=== PATIENT | female | born 1985 | race Caucasian/White ===

== ENCOUNTER 2016-09-04 09:37 | Outpatient (CLI) | payer MEDICAID | END 2016-09-04 09:38 | disposition home or self-care (01) | DX: Z36 Encounter for antenatal screening of mother (principal) ==

== ENCOUNTER 2016-10-27 16:29 | Outpatient (CLI) | payer MEDICAID ==
[2016-10-27 17:07] LABS: BASOPHILS % (AUTO) 0.4 %; EOSINOPHILS # (AUTO) 0.2 10^3/uL (0.0-0.7); EOSINOPHILS % (AUTO) 1.2 %; HCT - HEMATOCRIT 37.5 % (37.0-47.0); HGB - HEMOGLOBIN 12.5 g/dL (12.0-16.0); LYMPHOCYTES # (AUTO) 2.6 10^3/uL (1.5-3.5); LYMPHOCYTES % (AUTO) 20.6 %; MEAN CORPUSCULAR HEMOGLOBIN 29.2 pg (27.0-31.0); MEAN CORPUSCULAR HGB CONC 33.4 g/dL (32.0-36.0); MEAN CORPUSCULAR VOLUME 87.5 fL (81.0-99.0); MEAN PLATELET VOLUME 8.3 fL (7.9-10.8); MONOCYTES # (AUTO) 0.9 10^3/uL (0.0-1.0); MONOCYTES % (AUTO) 7.3 %; NEUTROPHILS # (AUTO) 8.9 10^3/uL (1.5-6.6); NEUTROPHILS % (AUTO) 70.5 %; RED BLOOD COUNT 4.28 10^6/uL (4.20-5.40); RED CELL DISTRIBUTION WIDTH 14.2 % (12.0-15.0); UNCORRECTED WHITE BLOOD COUNT 12.6 x10^3/uL; WHITE BLOOD COUNT 12.6 x10^3/uL (4.8-10.8)
[2016-10-27 17:15] LABS: CREATININE 0.4 mg/dL (0.4-1.0)
[2016-10-27 17:18] LABS: URIC ACID 3.3 mg/dL (2.6-7.2)
[2016-10-27 17:39] VITALS: BP 123/69
== END 2016-10-27 17:25 | disposition home or self-care (01) ==
LOC: OB 16:29 → WFO 16:29
PROVIDERS: ATTEND Obstetrics & Gynecology
DX: O10.913 Unspecified pre-existing hypertension complicating pregnancy, third trimester (principal); Z3A.34 34 weeks gestation of pregnancy
CPT/HCPCS: 36415; 59025; 82565; 82570; 83615; 84156; 84450; 84550; 85025

== ENCOUNTER 2016-11-02 08:00 | Outpatient (CLI) | payer MEDICAID | END 2016-11-02 08:01 | disposition home or self-care (01) | DX: Z36 Encounter for antenatal screening of mother (principal) ==

== ENCOUNTER 2016-11-02 10:19 | Outpatient (CLI) | payer MEDICAID | END 2016-11-02 11:25 | disposition home or self-care (01) | DX: Z36 Encounter for antenatal screening of mother (principal); O10.913 Unspecified pre-existing hypertension complicating pregnancy, third trimester; Z3A.35 35 weeks gestation of pregnancy ==

== ENCOUNTER 2016-11-09 09:12 | Outpatient (CLI) | payer MEDICAID | END 2016-11-09 10:50 | disposition home or self-care (01) | DX: O16.3 Unspecified maternal hypertension, third trimester (principal); Z3A.36 36 weeks gestation of pregnancy ==

== ENCOUNTER 2016-11-16 08:59 | Outpatient (CLI) | payer MEDICAID | END 2016-11-16 10:00 | disposition home or self-care (01) | DX: O13.3 Gestational [pregnancy-induced] hypertension without significant proteinuria, third trimester (principal); Z3A.37 37 weeks gestation of pregnancy ==

== ENCOUNTER 2016-11-23 08:54 | Outpatient (CLI) | payer MEDICAID | END 2016-11-23 09:42 | disposition home or self-care (01) | DX: O13.3 Gestational [pregnancy-induced] hypertension without significant proteinuria, third trimester (principal); Z3A.35 35 weeks gestation of pregnancy ==

== ENCOUNTER 2016-11-30 10:11 | Inpatient (IN) | payer MEDICAID ==
[2016-11-30] MEDS ORDERED: SODIUM CHLORIDE FLUSH 0.9% 10 ML SYRINGE IVP ONE ×2 (11:33→21:06)
[2016-11-30] MEDS ORDERED: LACTATED RINGERS 1,000 ML IV ONE ×4 (11:33→13:28)
[2016-11-30] MEDS ORDERED: ceFAZolin 2 GM/50 ML 50 ML IV SCH (11:45)
[2016-11-30] MEDS ORDERED: CITRIC ACID/SODIUM CITRATE 15 ML UDC PO SCH (12:00)
[2016-11-30] MEDS ORDERED: CITRIC ACID/SODIUM CITRATE 15 ML UDC PO ONE (12:11)
[2016-11-30] MEDS ORDERED: DEXAMETHASONE 4 MG/ML VIAL IVP ONE (13:00)
[2016-11-30] MEDS ORDERED: OXYTOCIN 10 UNIT/ML VIAL IV ONE (13:00)
[2016-11-30] MEDS ORDERED: ONDANSETRON 4 MG/2 ML VIAL IVP ONE (13:00)
[2016-11-30] MEDS ORDERED: MORPHINE PF 5 MG/10 ML VIAL IVP ONE (13:00)
[2016-11-30] MEDS ORDERED: KETOROLAC 30 MG/ML VIAL IVP ONE (13:00)
[2016-11-30] MEDS ORDERED: ONDANSETRON 4 MG/2 ML VIAL IVP PRN (13:58)
[2016-11-30] MEDS ORDERED: oxyCODONE 5 MG TABLET PO PRN (13:58)
[2016-11-30] MEDS ORDERED: diphenhydrAMINE 25 MG CAPSULE PO PRN (13:58)
[2016-11-30] MEDS ORDERED: ACETAMINOPHEN 1,000 MG/100 ML 100 ML IV ONE (15:00)
[2016-11-30] MEDS ORDERED: OXYTOCIN/LACTATED RINGERS 250 ML IV ONE (16:02)
[2016-11-30] MEDS: IBUPROFEN 800 MG TABLET PO SCH ×2 (16:25→23:30)
[2016-11-30] MEDS: SIMETHICONE CHEW 80 MG TABLET PO SCH ×2 (16:26→21:16)
[2016-11-30] MEDS: LACTATED RINGERS 1,000 ML IV SCH ×2 (17:29→22:08)
[2016-11-30] MEDS: DOCUSATE SODIUM 100 MG CAPSULE PO SCH (21:16)
[2016-11-30] MEDS: ACETAMINOPHEN 325 MG TABLET PO SCH ×2 (21:16→21:23)
[2016-12-01] MEDS: ACETAMINOPHEN 325 MG TABLET PO SCH ×6 (00:50→20:26)
[2016-12-01] MEDS: oxyCOD/ACETAMIN 5 MG/325 MG TABLET PO PRN ×4 (03:31→20:25)
[2016-12-01] MEDS: IBUPROFEN 800 MG TABLET PO SCH ×4 (03:32→22:02)
[2016-12-01] MEDS ORDERED: NICOTINE 7 MG PATCH TOP PRN (09:00)
[2016-12-01] MEDS ORDERED: NICOTINE 7 MG PATCH TOP SCH (09:00)
[2016-12-01] MEDS: SIMETHICONE CHEW 80 MG TABLET PO SCH ×3 (09:37→22:02)
[2016-12-01] MEDS: DOCUSATE SODIUM 100 MG CAPSULE PO SCH ×2 (09:37→22:02)
[2016-12-02] MEDS: ACETAMINOPHEN 325 MG TABLET PO SCH ×3 (00:13→09:35)
[2016-12-02] MEDS: oxyCOD/ACETAMIN 5 MG/325 MG TABLET PO PRN ×3 (00:14→09:36)
[2016-12-02] MEDS: IBUPROFEN 800 MG TABLET PO SCH ×2 (05:28→11:17)
[2016-12-02] MEDS: SIMETHICONE CHEW 80 MG TABLET PO SCH (05:28)
[2016-12-02] MEDS: DOCUSATE SODIUM 100 MG CAPSULE PO SCH (09:36)
== END 2016-12-02 11:25 | disposition home or self-care (01) | DRG 766 ==
PROC: 10D00Z1 Extraction of Products of Conception, Low, Open Approach (ICD-10-PCS; principal; 2016-11-30)
DX: O34.29 Maternal care due to uterine scar from other previous surgery (principal); N85.8 Other specified noninflammatory disorders of uterus; O99.52 Diseases of the respiratory system complicating childbirth; J45.909 Unspecified asthma, uncomplicated; O99.334 Smoking (tobacco) complicating childbirth; F17.210 Nicotine dependence, cigarettes, uncomplicated; Z3A.39 39 weeks gestation of pregnancy; Z37.0 Single live birth

== ENCOUNTER 2018-03-17 08:00 | Outpatient (CLI) | payer MEDICAID | END 2018-03-17 08:01 | disposition home or self-care (01) | LOC: LAB.F 08:00 | DX: Z02.1 Encounter for pre-employment examination (principal) ==

== ENCOUNTER 2020-06-20 16:33 | Outpatient (CLI) | payer MEDICAID | END 2020-06-20 16:34 | disposition home or self-care (01) | LOC: COV 16:33 | PROVIDERS: ATTEND Family Medicine | DX: R50.9 Fever, unspecified (principal); M79.10 Myalgia, unspecified site; R53.83 Other fatigue; J02.9 Acute pharyngitis, unspecified; Z20.828 Contact with and (suspected) exposure to other viral communicable diseases ==

== ENCOUNTER 2021-11-24 08:00 | Outpatient (CLI) | payer MEDICAID ==
[2021-11-24 20:29] LABS: BILIRUBIN,URINE NEGATIVE (NEGATIVE); GLUCOSE, URINE (UA) NEGATIVE (NEGATIVE); KETONES,URINE (UA) NEGATIVE (NEGATIVE); LEUKOCYTE ESTERASE, URINE NEGATIVE (NEGATIVE); NITRITE,URINE NEGATIVE (NEGATIVE); OCCULT BLOOD,URINE NEGATIVE (NEGATIVE); PROTEIN,URINE NEGATIVE (NEGATIVE); UROBILINOGEN,URINE 0.2 (NORMAL) E.U./dL (NORMAL)
[2021-11-24 20:35] LABS: CLARITY,URINE CLEAR (CLEAR)
[2021-11-24 20:55] LABS: BACTERIA,URINE None Seen /HPF (None Seen); RBC,URINE 0-5 /HPF (0-5); SQUAMOUS EPITHELIAL CELL,UR RARE Squamous (<= Few); WBC,URINE 0-3 /HPF (0-5)
== END 2021-11-24 23:59 | disposition home or self-care (01) ==
LOC: LAB.S 08:00
PROVIDERS: ATTEND Physician Assistant Medical
DX: R30.0 Dysuria (principal)
CPT/HCPCS: 81001; 87086

== ENCOUNTER 2022-01-30 09:16 | Outpatient (CLI) | payer MEDICAID ==
[2022-01-30 14:50] LABS: BASOPHILS # (AUTO) 0.1 10^3/uL (0.0-0.1); BASOPHILS % (AUTO) 0.7 %; EOSINOPHILS # (AUTO) 0.1 10^3/uL (0.0-0.7); EOSINOPHILS % (AUTO) 1.8 %; HCT - HEMATOCRIT 46.9 % (37.0-47.0); LYMPHOCYTES # (AUTO) 2.7 10^3/uL (1.5-3.5); LYMPHOCYTES % (AUTO) 35.6 %; MEAN CORPUSCULAR HEMOGLOBIN 30.8 pg (27.0-31.0); MEAN CORPUSCULAR VOLUME 96.3 fL (81.0-99.0); MEAN PLATELET VOLUME 9.7 fL (7.9-10.8); MONOCYTES # (AUTO) 0.7 10^3/uL (0.0-1.0); MONOCYTES % (AUTO) 9.4 %; NEUTROPHILS % (AUTO) 52.1 %; PLT - PLATELET COUNT 261 10^3/uL (130-450); RED BLOOD COUNT 4.87 10^6/uL (4.20-5.40); RED CELL DISTRIBUTION WIDTH 12.8 % (12.0-15.0); WHITE BLOOD COUNT 7.6 x10^3/uL (4.8-10.8)
[2022-01-30 16:37] LABS: THYROID STIMULATING HORMONE 7.54 uIU/mL (0.34-5.60)
[2022-01-30 18:29] LABS: ALBUMIN 4.1 g/dL (3.2-5.5); ALBUMIN/GLOBULIN RATIO 1.1 (1.0-2.2); BILIRUBIN,TOTAL 0.8 mg/dL (0.2-1.0); CALCIUM 9.2 mg/dL (8.5-10.3); CREATININE 0.8 mg/dL (0.4-1.0); POTASSIUM 4.2 mmol/L (3.5-5.0); TOTAL PROTEIN 7.7 g/dL (6.7-8.2)
[2022-01-30 18:42] LABS: FREE T4 (FREE THYROXINE) 0.54 ng/dL (0.58-1.64)
== END 2022-01-30 09:17 | disposition home or self-care (01) ==
LOC: LAB.S 09:16
PROVIDERS: ATTEND Registered Nurse
DX: J45.909 Unspecified asthma, uncomplicated (principal); F17.210 Nicotine dependence, cigarettes, uncomplicated; Z13.29 Encounter for screening for other suspected endocrine disorder
CPT/HCPCS: 36415; 80053; 84439; 84443; 85025

== ENCOUNTER 2023-01-29 07:16 | Outpatient (CLI) | payer MEDICAID ==
[2023-01-29 14:26] LABS: BASOPHILS # (AUTO) 0.1 10^3/uL (0.0-0.1); BASOPHILS % (AUTO) 0.6 %; EOSINOPHILS # (AUTO) 0.2 10^3/uL (0.0-0.7); EOSINOPHILS % (AUTO) 2.2 %; HCT - HEMATOCRIT 47.7 % (37.0-47.0); HGB - HEMOGLOBIN 15.7 g/dL (12.0-16.0); LYMPHOCYTES # (AUTO) 2.4 10^3/uL (1.5-3.5); LYMPHOCYTES % (AUTO) 30.7 %; MEAN CORPUSCULAR HEMOGLOBIN 31.2 pg (27.0-31.0); MEAN CORPUSCULAR HGB CONC 32.9 g/dL (32.0-36.0); MEAN CORPUSCULAR VOLUME 94.6 fL (81.0-99.0); MEAN PLATELET VOLUME 9.7 fL (7.9-10.8); MONOCYTES # (AUTO) 0.7 10^3/uL (0.0-1.0); MONOCYTES % (AUTO) 9.2 %; NEUTROPHILS # (AUTO) 4.4 10^3/uL (1.5-6.6); NEUTROPHILS % (AUTO) 56.9 %; PLT - PLATELET COUNT 256 10^3/uL (130-450); RED BLOOD COUNT 5.04 10^6/uL (4.20-5.40); RED CELL DISTRIBUTION WIDTH 12.5 % (12.0-15.0); WHITE BLOOD COUNT 7.8 x10^3/uL (4.8-10.8)
[2023-01-29 14:59] LABS: THYROID STIMULATING HORMONE 3.2 uIU/mL (0.34-5.60)
[2023-01-29 15:03] LABS: ALBUMIN/GLOBULIN RATIO 1.1 (1.0-2.2); ALKALINE PHOSPHATASE 68 IU/L (42-121); ALT ALANINE AMINOTRANSFERASE 14 IU/L (10-60); AST ASPARTATE AMINOTRANSFERASE 12 IU/L (10-42); BILIRUBIN,TOTAL 0.7 mg/dL (0.2-1.0); BUN - BLOOD UREA NITROGEN 17 mg/dL (6-20); CALCIUM 8.8 mg/dL (8.5-10.3); CARBON DIOXIDE - CO2 25 mmol/L (21-32); CHLORIDE 108 mmol/L (101-111); CHOL/HDL RATIO 4.9 (<4.4); CHOLESTEROL 180 mg/dL; CREATININE 0.7 mg/dL (0.4-1.0); GFR - MDRD 95 (>89); GLUCOSE 102 mg/dL (70-100); HDL CHOLESTEROL 37 mg/dL; LDL CHOLESTEROL,CALCULATED 124 mg/dL; LDL/HDL RATIO 3.4 (<4.4); POTASSIUM 4.4 mmol/L (3.5-5.0); SODIUM 137 mmol/L (135-145); TOTAL PROTEIN 7.5 g/dL (6.7-8.2); TRIGLYCERIDES 97 mg/dL; VLDL CHOLESTEROL 19 mg/dL
== END 2023-01-29 07:17 | disposition home or self-care (01) ==
LOC: LAB.S 07:16
PROVIDERS: ATTEND Registered Nurse
DX: E05.90 Thyrotoxicosis, unspecified without thyrotoxic crisis or storm (principal); Z79.899 Other long term (current) drug therapy; Z13.220 Encounter for screening for lipoid disorders
CPT/HCPCS: 36415; 80053; 80061; 83721; 84443; 85025